=== PATIENT | female | born 1995 | race Caucasian/White ===

== ENCOUNTER 2020-03-23 16:20 | Outpatient (CLI) | payer MEDICAID, SELFPAY ==
[2020-03-23 17:55] LABS: HCG Quant, Pregnancy 4 mIU/mL (1-3)
== END 2020-03-23 16:40 ==
PROVIDERS: PCP Family Medicine; Visit Provider Obstetrics & Gynecology
DX: O20.0 Threatened abortion (principal)
CPT/HCPCS: 36415; 84702